=== PATIENT | male | born 1940 | race Caucasian/White ===

== ENCOUNTER 2017-03-23 09:01 | Emergency (ER) | payer MEDICARE, BC ==
[~2017-03-23] VITALS: Ht 165.1 cm; Wt 69.0 kg
[2017-03-23] MEDS ORDERED: LOSA100T6 PO (09:36)
[2017-03-23] MEDS ORDERED: MONT10TA9 PO (09:36)
[2017-03-23] MEDS ORDERED: ATOR20TA PO (09:36)
[2017-03-23] MEDS ORDERED: SPIR25TA3 PO (09:36)
[2017-03-23] MEDS ORDERED: VERA360C2 PO (09:36)
[2017-03-23] MEDS ORDERED: ALPR1TAB2 PO (09:36)
[2017-03-23] MEDS ORDERED: ESCI10TA PO (09:36)
[2017-03-23] MEDS ORDERED: TAMS0.4C2 PO (09:36)
[2017-03-23 10:26] LABS: ASPARTATE AMINO TRANSFERASE 15 U/L (15-37); BLOOD UREA NITROGEN 14 mg/dL (7-18)
[2017-03-23 10:29] LABS: IS PT STATUS REG ER OR PRE ER? YES
[2017-03-23 11:22] VITALS: BP 128/85
== END 2017-03-23 11:25 | disposition home or self-care (01) ==
LOC: ED 10:10
DX: R07.89 Other chest pain (principal); J01.10 Acute frontal sinusitis, unspecified; J01.00 Acute maxillary sinusitis, unspecified; I10 Essential (primary) hypertension; E78.5 Hyperlipidemia, unspecified
CPT/HCPCS: 36415; 71020; 80053; 84484; 85025; 93005; 99285